=== PATIENT | female | born 1955 | race Caucasian/White ===

== ENCOUNTER → 2016-11-01 | Outpatient (CLI) | payer BC ==
[~2016-11-01] MED LIST: HYDR-5688 PO
--- NOTE | 2016-11-02 08:01 | MAMMOGRAPHY REPORT ---
BILATERAL DIGITAL SCREENING MAMMOGRAM TOMOSYNTHESIS WITH CAD: 11/01/2016 CLINICAL HISTORY: Routine screening examination. TECHNIQUE: Bilateral breast tomosynthesis in addition to standard 2D mammography was performed. Curr ent study was also evaluated with a Computer Aided Detection (CAD) system. COMPARISON: Comparison is made to exams dated: 10/27/2015 mammogram, 10/12/2013 mammogram - [facility], 09/12/2013 mammogram - [facility], 10/14/2014 ultrasound, 4 mammogram - [facility], and 09/08/2013 mammogram - [facility]. BREAST COMPOSITION: The tissue of both breasts is heterogeneously dense, which may obscure small ma sses. FINDINGS: There is evidence of prior reduction mammoplasty. There is a stable metallic biopsy marke r in the lower outer left breast, and stable asymmetries within the left breast. Faint punctate norah rocalcifications are also stable in the left breast. There is a focal area of architectural distortion in the 12:00 middle to posterior right breast, edwige t does not align with any of the visible mammoplasty scars, for which additional targeted ultrasound and possible additional mammographic views are recommended. There are stable benign-appearing microcalcifications within the right breast. No other suspicious mass, architectural distortion or suspicious microcalcifications are seen. IMPRESSION: ACR BI-RADS CATEGORY 0: INCOMPLETE EVALUATION: NEED ADDITIONAL IMAGING EVALUATION The focal architectural distortion in the 12:00 right breast needs additional evaluation. The patient will be called to schedule an appointment. Approximately 10% of breast cancers are not detected with mammography. A negative mammographic repor t should not delay biopsy if a clinically suggestive mass is present. Mimi James M.D. ay/:11/01/2016 22:23:37 Catering Cook: Shannon MIRAMONTES)(Sera), [facility] letter sent: Addl Imaging 0 BI-RADS Code: ACR BI-RADS Category 0: Incomplete Evaluation: Need Additional Imaging Evaluation
== END | disposition home or self-care (01) ==
LOC: C.MAMM 12:08
PROVIDERS: ATTEND Specialist
DX: Z12.31 Encounter for screening mammogram for malignant neoplasm of breast (principal); N64.89 Other specified disorders of breast

== ENCOUNTER → 2016-11-10 | Outpatient (CLI) | payer BC ==
--- NOTE | 2016-11-10 14:27 | MAMMOGRAPHY REPORT ---
UNILATERAL RIGHT DIGITAL DIAGNOSTIC MAMMOGRAM TOMOSYNTHESIS AND TARGETED RIGHT ULTRASOUND: 11/10/2016 CLINICAL HISTORY: Callback from screening mammogram for right breast architectural distortion. TECHNIQUE: Breast tomosynthesis in addition to standard 2D mammography was performed. Spot aly nba tomosynthesis right CC and MLO views including c views were obtained. COMPARISON: Comparison is made to exams dated: 11/01/2016 mammogram, 10/27/2015 mammogram, 04/21/2015 m ammogram, 10/14/2014 mammogram, and 04/12/2014 mammogram - [facility]. BREAST COMPOSITION: The tissue of the right breast is heterogeneously dense, which may obscure smal l masses. FINDINGS: Spot compression views of the right breast demonstrate persistent architectural distortio n within the right 12:00 breast, best seen on the cc view. again noted is evidence of prior reductio n mammoplasty. When compared to prior exams, the distortion has likely been present dating back to the August 2013 exam, although is much more conspicuous on the current tomosynthesis images. Targeted ultrasound was performed of the right 12:00 breast in the region of the mammographic distor tion. No suspicious masses or other suspicious sonographic abnormalities are evident. While the distortion could represent postsurgical distortion from prior reduction mammoplasty, radia l scar and/or malignancy is not entirely excluded. Alternatively, the patient has a family history of breast cancer with her mother diagnosed in her 50s. Therefore, recommend further evaluation with bilateral breast MRI. IMPRESSION: ACR BI-RADS CATEGORY 0: INCOMPLETE EVALUATION: NEED ADDITIONAL IMAGING EVALUATION, TAR GETED ULTRASOUND ACR BI-RADS CATEGORY 0: INCOMPLETE EVALUATION: NEED ADDITIONAL IMAGING EVALUATION Persistent architectural distortion seen within the right 12:00 breast mammographically, without a s onographic correlate evident. While the distortion could represent postsurgical changes from prior r eduction mammoplasty, other etiologies such as radial scar or malignancy are not entirely excluded. Recommend bilateral breast MRI for further evaluation, especially given the family history of breas t cancer. The patient has been verbally notified of the results. Approximately 10% of breast cancers are not detected with mammography. A negative mammographic repor t should not delay biopsy if a clinically suggestive mass is present. Heather Gillis M.D. ah/:11/10/2016 09:52:05 Director Of Compliance: Christiane CONNOLLY(R)(M), [facility] letter sent: Addl Imaging 0 BI-RADS Code: ACR BI-RADS Category 0: Incomplete Evaluation: Need Additional Imaging Evaluation Ul trasound BI-RADS: ACR BI-RADS Category 0: Incomplete Evaluation: Need Additional Imaging Evaluation
--- NOTE | 2016-11-11 09:52 | CODING QUERY NO DIAGNOSIS ---
TREATMENT RENDERED WITHOUT A DIAGNOSIS Dr. Martinez, To promote full compliance with coding requirements relating to patient care, physician participation is requested in all cases of ply splicer uncertainty. Please assist us with providing a diagnosis/symptom for the test(s) below: A diagnosis/symptom was not documented on your Order. A valid diagnosis/symptom is required to bill all insurances. Please remember that we are unable to code a diagnosis of rule out, probable, possible, questionable, or suspected. Tests that require a diagnosis: * DIAG RT CALL BACK W/O CAD DIAGNOSIS: * ULTRASOUND BREAST LIMITED DIAGNOSIS: DATE OF SERVICE: 11/10/16 Provider Signature: Date: Thank you [facility] Information Management Once completed, please kindly fax back to [phone] For questions please call [phone]
== END | disposition home or self-care (01) ==
LOC: C.MAMM 09:17
PROVIDERS: ATTEND Specialist
DX: R92.2 Inconclusive mammogram (principal); N64.89 Other specified disorders of breast

== ENCOUNTER → 2016-11-23 | Outpatient (CLI) | payer BC ==
[~2016-11-23] MED LIST changes: +GADAVIST IV PRN
--- NOTE | 2016-11-25 13:35 | MAMMOGRAPHY REPORT ---
BREAST MRI OF BOTH BREASTS : 11/23/2016 CLINICAL HISTORY: 61-year-old woman with a history of prior reduction mammoplasty and benign left br east ultrasound guided core biopsy. Family history of breast cancer = mother. She was called back from screening mammography for architectural distortion in the 12:00 right breast. Diagnostic mammo grams demonstrate persistence of the distortion but a definite sonographic correlate was not seen. Patient presents for further evaluation. COMPARISON: Comparison is made to exams dated: 11/10/2016 mammogram, 11/01/2016 mammogram, 10/27/2015 m ammogram, 04/21/2015 mammogram, 10/14/2014 mammogram, and 10/14/2014 ultrasound - [facility]. TECHNIQUE: Using a 1.5 Jaimie magnet and dedicated breast coil, multisequence axial images were obtai petros through the breasts. After uneventful IV administration of 8 mL of Gadavist, dynamic multiphase contrast-enhanced axial images, and sagittal postcontrast were obtained. Temporal subtraction axia l images and 3-D MIP images are provided. Everything was then reviewed on a 3-D workstation, [employer]. FINDINGS: Right breast: There is evidence of prior reduction mammoplasty. There is moderate background parenc hymal enhancement. Focal architectural distortion is appreciated in the 12:00 superior right breast , approximately 6 cm distal to the nipple. There is associated central masslike enhancement with ind istinct borders that demonstrates mixed persistent and plateau kinetics, measuring 10.6 x 6.4 x 5.7 mm (axial images 4852). In retrospect, comparing to the MRI from 2013, this subtle distortion and associated enhancement is increasingly prominent although it is unclear if this may be in part posit ional. Nevertheless, this lesion is indeterminate and definitive characterization with tissue sampl ing is recommended. Would prefer MRI guidance as this lesion was inconspicuous on ultrasound. No s uspicious non-mass enhancement or suspicious kinetics are seen in the right breast. No focal skin t hickening or nipple retraction is seen. No suspicious right axillary lymphadenopathy. Left breast: There is evidence of prior reduction mammoplasty and moderate background parenchymal en hancement of the left breast. There is a conspicuous small round focus of enhancement measuring 4 m m in the upper inner quadrant versus 12:00 axis of the left breast (axial image 38/108) this does no t appear significantly changed in size compared to the 2014 MRI but has central washout kinetics. T his is indeterminate and second look ultrasound with possible ultrasound-guided core biopsy is recom mended. No other suspicious enhancing mass, non-mass enhancement, architectural distortion or suspi cious kinetics are identified in the left breast. There is no focal skin thickening or nipple retra ction. Susceptibility artifact is seen in the lower outer middle one third of the left breast, repr esenting the biopsy marker clip from prior benign biopsy. No suspicious left axillary lymphadenopat hy. IMPRESSION: ACR BI-RADS CATEGORY 4: SUSPICIOUS 1. MRI guided biopsy is recommended for focal architectural distortion in the 12:00 right breast wi th central masslike enhancement measuring approximately 1 cm. 2. At the time of the MRI guided biopsy, second look ultrasound with possible ultrasound-guided cor e needle biopsy is recommended for a small round 4 mm focus of enhancement in the superior left aileen st, with associated suspicious kinetics. 3. No suspicious axillary lymphadenopathy bilaterally. The patient will be called to schedule an appointment. Mimi James M.D. 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
== END | disposition home or self-care (01) ==
LOC: C.MRI 07:38
PROVIDERS: ATTEND Specialist
DX: R92.8 Other abnormal and inconclusive findings on diagnostic imaging of breast (principal)

== ENCOUNTER → 2016-12-22 | Outpatient (CLI) | payer BC ==
[~2016-12-22] MED LIST changes: +LIDO/EPINEPHRINE/SOD BICARB 20 ML VIAL INFIL ONE; +XYLOCAINE 1%/SOD BICARB 20 ML VIAL INFIL ONE
--- NOTE | 2016-12-22 10:23 | Discharge Instructions ---
Discharge Instructions Procedure Procedure Date: Dec 22, 2016. Reason for visit: Right Architectural Distortion. Discharge Discharge Date: Dec 22, 2016. Discharge Diagnosis: status post breast biopsy Instructions Activity Recommendations: Additional Limitations (see below) Return to School/Work: no limitations Recommended Home Diet: No Limitations Provider Instructions: ACTIVITY RECOMMENDATIONS: * No lifting, pushing, pulling or exercising the affected side for three days. RETURN TO SCHOOL/WORK: * You may return to work/school after the procedure, but do not perform any strenuous activities for 24 to 48 hours. MEDICATIONS: * Tylenol (two 325 mg) every four to six hours if needed for mild pain (if not allergic to Tylenol). DIET: * Resume previous diet. SPECIAL CARE INSTRUCTIONS: * Keep biopsy site dry for 24 hours. May shower after 24 hours, but do not soak (bathe) incision. * May remove Tegaderm (plastic patch) tomorrow AFTER showering. * Leave the steri-strips on for one week. Allow the steri-strips to fall off by themselves. If not off after one week, you may remove them. You may place a Bandaid crosswise over the strips, if desired. * Apply ice 10 minutes on and 10 minutes off as needed. * Wear a bra at bedtime to sleep more comfortably for 2-3 days. * Your referring physician should have the results after approximately 5 to 7 business days. * Call for unusual bleeding, fever, drainage, etc or if you have any questions call during normal business hours or after hours call Dr Gillis, [phone]. FOLLOW UP VISIT: Follow-up with Referring Physician as scheduled. Allergies Coded Allergies: No Known Drug Allergy (Verified Allergy, Unknown, [facility], 10/12/13) Rupal Watsony Recommendations: Call your doctor if: * Temperature above 101 degrees * Pain not relieved by pain medicine ordered * There is increased drainage or redness from any incision * You have any unanswered questions or concerns. Your Doctors Instructions noted above were prepared by provider Heather Gillis. Patient Signature Section: Patient Instructions Signature Page Jerri Zapata Patient (or Guardian) Signature/Date: I have read and understand the instructions given to me by my caregivers. Caregiver/RN/Doctor Signature/Date: The above-named patient and/or guardian has received patient instructions on this date. + Original Patient Signature Page (only) stays with chart. Please make copy for patient.
--- NOTE | 2016-12-22 14:35 | MAMMOGRAPHY REPORT ---
THIS REPORT HAS BEEN AMENDED. MRI BIOPSY RIGHT BREAST: 12/22/2016 CLINICAL HISTORY: Abnormal enhancement in the right 12:00 breast, which corresponds with mammographi c architectural distortion. COMPARISON: Comparison is made to exams dated: 11/10/2016 mammogram, 11/01/2016 mammogram, 10/27/2015 m ammogram, 04/21/2015 mammogram, and 11/23/2016 breast MRI - [facility]. Technique: Written informed consent was obtained from the patient after discussion of the procedure as well as risks of MRI guided core needle biopsy. A preprocedural timeout was performed prior to s tarting the procedure. The patient was placed prone on a 1.5 Jaimie MR scanner. The lateral aspect of the right breast was cleansed with ChloraPrep. The right breast was positioned in a dedicated breast coil and MRI guidan ce grid device. After localizing sequences were obtained, pre-and postcontrast axial sequences were performed which confirm the persistence of the enhancing lesion in the right 12:00 breast. 8 mL of Gadavist IV cont rast was administered. Using the images, targeting was performed using the [employer] software. The skin was prepped with Betadine through the grid and after local anesthesia was achieved, an intr oducer sheath and localizing obturator were placed into the site using a lateral approach. The loca tion of the obturator sheath was confirmed with additional images. Subsequently, multiple samples were obtained from the site using a [employer] 9-gauge vacuum-assisted cor e biopsy device. Through the introducer sheath, a marker clip was placed. Postprocedural images de monstrate postbiopsy changes in the expected location of the enhancing lesion. Direct pressure was held at the biopsy site until hemostasis was achieved. The patient tolerated the procedure without immediate complication. Mammography was obtained at the breast center after completion of the biopsy to confirm marker clip placement. Please see the sepa rate dictation of the exam for further details. The specimens were sent to pathology for analysis. Wound care instructions were given to the patient. IMPRESSION: MRI BIOPSY MRI guided core needle biopsy of enhancing lesion in the right 12:00 breast, with clip placement. T he patient will receive pathology results from her referring provider. Heather Gillis M.D. 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 The pathology results from MRI guided right breast biopsy were reviewed on 12/29/2016. The pathology shows a radial scar/complex sclerosing lesion, which is concordant with the imaging findings. Recom mend surgical excision for further evaluation. Additionally, recommend follow-up breast MRI in 6 mo nths to reevaluate the enhancing focus in the left breast which is probably benign.
--- NOTE | 2016-12-22 14:35 | MAMMOGRAPHY REPORT ---
UNILATERAL RIGHT DIGITAL DIAGNOSTIC MAMMOGRAM: 12/22/2016 CLINICAL HISTORY: Status post right breast MRI guided biopsy. TECHNIQUE: Postprocedural right CC and ML views were obtained. COMPARISON: Comparison is made to exams dated: 11/10/2016 ultrasound, 11/10/2016 mammogram, 11/01/2016 mammogram, and 10/27/2015 mammogram - [facility]. BREAST COMPOSITION: The tissue of the right breast is heterogeneously dense, which may obscure smal l masses. FINDINGS: A new biopsy marker clip is seen in the expected location of the biopsied enhancing lesio n in the right 12:00 breast. No significant postbiopsy hematoma is seen. IMPRESSION: POST PROCEDURE IMAGING FOR MARKER PLACEMENT New biopsy marker clip status post MRI guided biopsy of the right breast. Pathology results are pen ding. Approximately 10% of breast cancers are not detected with mammography. A negative mammographic repor t should not delay biopsy if a clinically suggestive mass is present. Heather Gillis M.D. ah/:12/22/2016 11:18:48 Quality Management Coordinator: João CONNOLLY(Dc)(M), [facility] BI-RADS Code: Post Procedure Imaging For Marker Placement
--- NOTE | 2016-12-22 14:35 | MAMMOGRAPHY REPORT ---
ULTRASOUND OF LEFT BREAST: 12/22/2016 CLINICAL HISTORY: 4 mm focus of enhancement seen within the left upper inner quadrant/12:00 breast o n recent breast MRI, for which second look ultrasound was recommended. COMPARISON: Comparison is made to exams dated: 11/23/2016 breast MRI, 11/10/2016 ultrasound, and mammogram - [facility]. Breast MRI dated 05/16/2014. TECHNIQUE: Real-time targeted ultrasound of the left breast was performed. FINDINGS: Real-time, high-resolution targeted ultrasound was performed of the left upper inner quadrant/12:00 breast in the region of the enhancing focus seen on breast MRI. Multiple small round/oval anechoic circumscribed masses are seen in this region, consistent with benign cysts. No suspicious solid mas s is evident. No clear sonographic correlate for the enhancing focus is seen. On review of prior M RI, the focus is not significantly changed compared to the 05/16/2014 exam. IMPRESSION: ACR-BI-RADS CATEGORY 3: PROBABLY BENIGN - FOLLOW-UP RECOMMENDED No clear correlate is seen on ultrasound for the 4 mm enhancing focus within the left breast on rece nt breast MRI. The focus is probably benign given the stability since 05/16/2014. Pending benign pa thology of the right breast biopsy, recommend follow-up bilateral breast MRI in 6 months to confirm stability. The patient was verbally notified of the results. Heather Gillis M.D. /:12/22/2016 11:22:22 Attending Technologist: João CONNOLLY(Dc)(M), [facility] Hot Mill Roller: Heather Gillis MD, [facility] BI-RADS Code: ACR-BI-RADS Category 3: Probably Benign
== END | disposition home or self-care (01) ==
LOC: C.MRI 08:46
PROVIDERS: ATTEND Specialist
DX: N64.9 Disorder of breast, unspecified (principal)

== ENCOUNTER → 2017-01-21 | Outpatient (CLI) | payer BC ==
[~2017-01-21] MED LIST changes: -GADAVIST IV PRN; -LIDO/EPINEPHRINE/SOD BICARB 20 ML VIAL INFIL ONE; -XYLOCAINE 1%/SOD BICARB 20 ML VIAL INFIL ONE
--- NOTE | 2017-01-21 08:41 | DIAGNOSTIC IMAGING REPORT ---
CHEST 2 VIEWS ROUTINE HISTORY: ABNORMAL LUNG SOUNDS,LAB FIRST, RAD SECOND AND CPL THIRD COMPARISON: Chest 10/08/2013. FINDINGS: The lungs are clear. Cardiac silhouette is normal in size. No pleural effusions. No pneumothorax. IMPRESSION: No acute process. Electronically signed by: Stefan Kan M.D. 01/21/2017 8:39 AM Dictated Date/Time: 01/21/2017 8:38 AM
[2017-01-21 09:33] LABS: BASO % 0.5 %; BASO ABS # 0.04 K/uL (0-0.2); COMPLETE YES; EOS % 0.9 %; HEMATOCRIT 43.9 % (37-47); IG% 0.3 %; LYMPH % 35.2 %; LYMPH ABS # 2.76 K/uL (1.2-3.4); MEAN CELL VOLUME 88.3 fL (80-100); MEAN CORPUSCULAR HEMOGLOBIN 29.8 pg (25-34); MEAN CORPUSCULAR HGB CONC 33.7 g/dl (32-36); MEAN PLATELET VOLUME 9.6 fL (7.4-10.4); MONO % 5.9 %; NEUT % 57.2 %; PLATELET COUNT 255 K/uL (130-400); RED BLOOD COUNT 4.97 M/uL (4.2-5.4); WHITE BLOOD COUNT 7.85 K/uL (4.8-10.8)
[2017-01-21 09:50] LABS: ALT/SGPT 35 U/L (12-78); AST/SGOT 16 U/L (15-37); BLOOD UREA NITROGEN 14 mg/dl (7-18); BUN/CREATININE RATIO 15.7 (10-20); CARBON DIOXIDE 30 mmol/L (21-32); CHLORIDE 107 mmol/L (98-107); CHOLESTEROL 189 mg/dl (0-200); CREATININE 0.88 mg/dl (0.60-1.20); GLUCOSE,FASTING 99 mg/dl (70-99); POTASSIUM 4.2 mmol/L (3.5-5.1); SODIUM 142 mmol/L (136-145)
[2017-01-21 09:52] LABS: ALB/GLOB RATIO 0.8 (0.9-2); ALKALINE PHOSPHATASE 88 U/L (45-117); HDL CHOLESTEROL 38 mg/dl; LDL CHOLESTEROL CALCULATED 122 mg/dl; TRIGLYCERIDES 146 mg/dl (0-150); VERY LOW DENSITY LIPOPROT CALC 29 mg/dl
== END | disposition home or self-care (01) ==
LOC: C.LAB 08:01
PROVIDERS: ATTEND Surgery
DX: Z00.00 Encounter for general adult medical examination without abnormal findings (principal); N63 Unspecified lump in breast

== ENCOUNTER → 2017-02-04 | Day surgery (SDC) | payer BC ==
[2017-01-17 12:24] VITALS: Ht 157.5 cm; Wt 79.5 kg
[~2017-02-04] VITALS: Ht 157.5 cm; Wt 79.5 kg
[~2017-02-04] MED LIST changes: +ATROPINE SULFATE 0.1 MG/ML 5ML SYR IV PRN; +CEFAZOLIN 2000 MG/60 ML D5W IV SCH; +DEXAMETHASONE SOD INJ 4 MG/ML VIAL IV PRN; +DEXAMETHASONE SOD INJ 4 MG/ML VIAL ONE; +EpHEDrine SULFATE INJ 50 MG/ML AMP IV PRN; +FENTANYL CITRATE INJ 50 MCG/1 ML 2 ML VIAL ONE; +HYDROCODONE/ACETAMOPHEN 5/325MG TAB PO PRN; +KETOROLAC TROMETHAMINE 30 MG/ML VIAL IV. PRN; +LABETALOL HCL IV 5 MG/ML 20ML IV PRN; +LACTATED RINGER'S 1000ML 1,000 ML IV SCH; +LIDOCAINE HCL 2% 2 ML VIAL (20MG/ML) ONE; +LIDOCAINE/EPINEPHRINE 1% INJ 50 ML VIAL ONE; +METOCLOPRAMIDE HCL INJ 5 MG/ML 2 ML VIAL IV PRN; +MIDAZOLAM HCL 1 MG/ML 2ML VIAL ONE; +MoRPHine SULFATE 10 MG/ML CARP/VIAL IV PRN; +ONDANSETRON INJ 2 MG/ML 2 ML VIAL IV PRN; +ONDANSETRON INJ 2 MG/ML 2 ML VIAL ONE; +PHENYLEPHRINE 100MCG/ML 5ML SYR IV PRN; +PROPOFOL IV EMULSION 10 MG/ML 20 ML VIAL IV ONE; +SODIUM CHLORIDE 0.9% 1000ML 1,000 ML IV SCH
--- NOTE | 2017-02-04 09:14 | History & Physical Bridge Note ---
H&P Re-Evaluation Bridge Note: I have examined the patient, reviewed the History & Physical and in the interval since the performance of the History & Physical I have noted the following changes of clinical significance: No changes noted
--- NOTE | 2017-02-04 10:31 | [facility] Operative Report ---
Operative Report Operative Date Feb 04, 2017. Pre-Operative Diagnosis Abnormal mammogram--right breast Post-Operative Diagnosis same Procedure(s) Performed right breast lumpectomy with needle LOC Surgeon Dr Conway Endoscopy Tech Surgeon(s) Tiara Warren PA-C Estimated Blood Loss 15 ml Findings normal appearing breast tissue. Specimens A. right breast needle-- loc biopsy sent fresh to breast center short stitch-superior, long stitch lateral tissue out out at 1008 Anesthesia gen with LMA Complication(s) None Disposition Recovery Room / PACU I attest to the content of the Intraoperative Record and any orders documented therein. Any exceptions are noted below.
--- NOTE | 2017-02-04 10:38 | Discharge Instructions-SurgCtr ---
Discharge Instructions Date of Service Feb 04, 2017. Visit Reason for Visit: Right Breast Mass Discharge Discharge Diagnosis / Problem: Right Breast Mass Discharge Goals Goal(s): Decrease discomfort, Improve function Activity Recommendations Activity Limitations: as noted below Lifting Limitations: no more than 10 pounds Exercise/Sports Limitations: until after follow-up appointment May Resume Sexual Activity: after follow-up appointment Shower/Bathe: tomorrow Driving or Machine Use: resume 1 day after discharge Anesthesia . Post Anesthesia Instructions: If you have had General Anesthesia or IV Sedation: * Do not drive today. * Resume driving when surgeon permits. * Do not make important decisions or sign legal documents today. * Call surgeon for: 1. Temperature elevations greater than 101 degrees F. 2. Uncontrollable pain. 3. Excessive bleeding. 4. Persistent nausea and vomiting. 5. Medication intolerance (nausea, vomiting or rash). * For nausea and vomiting use only clear liquids such as: tea, soda, bouillon until nausea subsides, then gradually increase diet as tolerated. * If you have any concerns or questions, call your surgeon's office. If physician is unavailable and it is an emergency, call 911 or go to the nearest emergency room. . Instructions / Follow-Up Instructions / Follow-Up Please follow-up with Dr. Conway in the office in 1-2 weeks. Please call the office at [phone] to make a follow-up appointment if you do not have one already. If you have any questions or concerns, please call the office at [phone]. Diet Recommendations Home Diet: no limitations, resume previous diet Procedures Procedures Performed: Right Breast Lumpectomy With Needle Localization Pending Studies Studies pending at discharge: yes List of pending studies: Pathology report. Medical Emergencies . Who to Call and When: Medical Emergencies: If at any time you feel your situation is an emergency, please call 911 immediately. . Non-Emergent Contact Non-Emergency issues call your: Primary Care Provider, Surgeon Call Non-Emergent contact if: temperature is above 101.5, your pain is not controlled, wound has increased drainage, wound has increased redness . . "Provider Documentation" section prepared by Isabella Braxton. . [place] Drug Monitoring Program Search Results: patient reviewed within database, no issues identified
[2017-02-04] MEDS: FENTANYL CITRATE INJ 50 MCG/1 ML 2 ML VIAL IV PRN ×2 (10:52→11:04)
--- NOTE | 2017-02-04 10:52 | OPERATIVE REPORT ---
DATE OF OPERATION: 02/04/2017 PREOPERATIVE DIAGNOSIS: Abnormality on mammogram of the right breast/radial scar complex. POSTOPERATIVE DIAGNOSIS: Same. PROCEDURE: Right breast lumpectomy with needle localization. SURGEON: Dr. Brett Conway. PRE PRESS PROOFER: Isabella Braxton PA-C. ESTIMATED BLOOD LOSS: Approximately 15 mL. COMPLICATIONS: No immediate. ANESTHESIA: General with laryngeal mask airway. DESCRIPTION OF PROCEDURE: Prior to coming to the operating suite, the patient had been taken to the breast center, where mammography with needle localization was performed. The patient was then brought to the operating suite and placed in supine position. After successful placement of laryngeal mask airway, the entire right breast including the guidewire was sterilely prepped and draped in the usual fashion. We did cut the wire to make introduction into the wound itself more easy to accomplish. I began by making a curvilinear incision just inferior to the entrance site of the guidewire. We used electrocautery to carry down through the soft tissue and start making skin flaps. Again, the wire had been cut previously and we were able to introduce it into the wound itself. We used traction and countertraction and electrocautery to continue to come around the breast tissue and 360 degrees around the localizing wire. We continued to follow this inferiorly as well as posteriorly. The course of the wire carried it down to the retro nipple areolar complex area. We carried it whole way down to the chest wall, though we did not take fascia. Once we got to the tip, where we could feel the tip of the guidewire, I came around again normal breast tissue posterior and inferior and then took the specimen out in 1 entire piece. We did orient it such that 2 long sutures were lateral and 1 short suture was superior on the specimen. We left the wire in place. We did send it to the [place], where they x-rayed it and did verify that we got the specimen. We then thoroughly irrigated the wound and controlled any small bleeding points using electrocautery. Two grams of Vashti was placed on all the raw surfaces to help prevent hematoma and seroma formation. I then closed the wound in multiple layers using 0 Vicryl for deep layers, 2-0 Vicryl for mid layers and 4-0 Monocryl for skin. Benzoin, Steri-Strips and sterile dressing were applied. The patient was awakened and extubated, and transferred to recovery in stable condition. I attest to the content of the Intraoperative Record and any orders documented therein. Any exception s are noted below.
[2017-02-04 11:39] VITALS: BP 148/75; PULSE 62; TEMP 36.2; O2SAT 96
--- NOTE | 2017-02-04 12:13 | Anesthesia Progress Nt - [facility] ---
Anesthesia Post Op Note Date & Time Feb 04, 2017 at 12:13 Vital Signs Pain Intensity: 4.0 Vital Signs Past 12 Hours Date Time Temp Pulse Resp B/P (MAP) Pulse Ox O2 Delivery O2 Flow Rate FiO2 02/04/17 11:39 36.2 62 148/75 (99) 96 Room Air 02/04/17 11:27 70 14 02/04/17 11:27 69 14 147/94 95 02/04/17 11:26 36.2 63 12 147/94 94 Room Air 02/04/17 11:22 65 19 152/82 98 02/04/17 11:22 66 19 02/04/17 11:17 66 10 02/04/17 11:17 66 10 136/80 98 02/04/17 11:12 72 12 143/93 95 02/04/17 11:12 71 12 02/04/17 11:09 145/84 02/04/17 11:07 65 15 02/04/17 11:07 67 15 98 02/04/17 11:02 64 13 152/74 97 02/04/17 11:02 64 13 02/04/17 10:57 74 14 140/91 95 02/04/17 10:57 75 14 02/04/17 10:52 67 16 161/71 99 02/04/17 10:52 69 16 02/04/17 10:48 157/ 02/04/17 10:47 74 16 02/04/17 10:47 76 16 99 02/04/17 10:42 74 17 156/87 99 02/04/17 10:42 75 17 02/04/17 10:37 69 15 158/84 99 02/04/17 10:37 68 15 02/04/17 10:34 166/97 02/04/17 10:32 36.2 74 16 166/97 98 Diffusion Mask 6 02/04/17 08:03 36.8 72 20 167/83 (111) 96 Room Air Notes Mental Status: alert / awake / arousable, participated in evaluation Pt Amnestic to Procedure: Yes Nausea / Vomiting: adequately controlled Pain: adequately controlled Airway Patency, RR, SpO2: stable & adequate BP & HR: stable & adequate Hydration State: stable & adequate Anesthetic Complications: no major complications apparent
--- NOTE | 2017-02-04 13:55 | MAMMOGRAPHY REPORT ---
SPECIMEN RIGHT BREAST: 02/04/2017 CLINICAL HISTORY: Status post right breast surgical excision. COMPARISON: Comparison is made to exams dated: 12/22/2016 ultrasound, 12/22/2016 mammogram, 12/22/2016 MRI biopsy, 11/23/2016 breast MRI, and 11/10/2016 mammogram - [facility]. Findings: A radiograph was performed of the right breast surgical specimen. The localized architectu ral distortion is present centrally within the specimen. The biopsy marker clip is also noted within the specimen. Results were discussed with Dr. Conway over the telephone. IMPRESSION: SPECIMEN The imaged specimen contains the preoperatively localized abnormality. Heather Gillis M.D. /:02/04/2017 10:24:50 Tourist Cabin Keeper: Luana CONNOLLY(Dc)(M), [facility]
--- NOTE | 2017-02-04 13:55 | MAMMOGRAPHY REPORT ---
NEEDLE LOCALIZATION RIGHT BREAST: 02/04/2017 CLINICAL HISTORY: Recent MRI guided biopsy of right breast architectural distortion which yielded a r adial scar. The patient presents for preoperative needle localization. PROCEDURE DESCRIPTION: With imaging guidance, aseptic technique, and 1% lidocaine as the local anesth etic, the area of concern was localized with a 7.5 cm needle. The path of approach was craniocaudal. The biopsy marker clip from the original MRI guided biopsy is noted to be laterally migrated from t he biopsy site. The architectural distortion and a small associated postbiopsy hematoma were therefo re localized instead of the biopsy marker clip, which is noted to be migrated approximately 1.9 cm la teral to the architectural distortion. The localized architectural distortion and postbiopsy hematom a are located along the distal aspect of the wire, approximately 15 mm proximal to the tip of the wir e in the region of the hook. The needle was removed. The patient tolerated the procedure without com plication. COMPARISON: Comparison is made to exams dated: 12/22/2016 ultrasound, 12/22/2016 mammogram, 11/10/2016 ultrasound, 11/10/2016 mammogram, 11/01/2016 mammogram, and 10/27/2015 mammogram - [facility]. IMPRESSION: NEEDLE LOCALIZATION Mammographic guided needle localization of the mammographic architectural distortion and associated s mall postbiopsy hematoma. The biopsy marker clip was not localized as it was noted to be laterally m igrated from the biopsy site. Heather Gillis M.D. /:02/04/2017 08:30:27 Photo Finish Photographer: Luana CONNOLLY(R)(M), [facility]
== END | disposition home or self-care (01) ==
LOC: X.SURG 07:52
PROVIDERS: ATTEND Surgery
DX: N63 Unspecified lump in breast (principal); N62 Hypertrophy of breast; Z83.3 Family history of diabetes mellitus; Z80.3 Family history of malignant neoplasm of breast; Z82.49 Family history of ischemic heart disease and other diseases of the circulatory system

== ENCOUNTER → 2017-06-15 | Outpatient (CLI) | payer BC ==
--- NOTE | 2017-06-15 18:41 | DIAGNOSTIC IMAGING REPORT ---
RIGHT KNEE 3 VIEWS HISTORY: Right knee pain. COMPARISON: None. FINDINGS: There is no fracture or dislocation. Soft tissues are unremarkable. No radiopaque foreign bodies. No knee effusion. IMPRESSION: No fractures. Electronically signed by: Stefan Kan M.D. 06/15/2017 6:40 PM Dictated Date/Time: 06/15/2017 6:39 PM
--- NOTE | 2017-06-15 18:46 | DIAGNOSTIC IMAGING REPORT ---
RIGHT ANKLE 3 VIEWS, RIGHT FOOT 3 VIEWS HISTORY: M25.571 Pain in joint of right ankle or foot right COMPARISON: None. FINDINGS: No acute fracture or dislocation. Old, healed fifth metatarsal fracture. 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 Soft tissue and bony bunion within the foot. Mild osteoarthritis at the first MTP joint. The Lisfranc joint is well aligned. Mild soft tissue swelling within the ankle. No radiopaque foreign bodies. IMPRESSION: No acute fracture or dislocation within the right ankle or right foot. Electronically signed by: Stefan Kan M.D. 06/15/2017 6:44 PM Dictated Date/Time: 06/15/2017 6:40 PM
--- NOTE | 2017-06-15 18:46 | DIAGNOSTIC IMAGING REPORT ---
RIGHT ANKLE 3 VIEWS, RIGHT FOOT 3 VIEWS HISTORY: M25.571 Pain in joint of right ankle or foot right COMPARISON: None. FINDINGS: No acute fracture or dislocation. Old, healed fifth metatarsal fracture. 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 Soft tissue and bony bunion within the foot. Mild osteoarthritis at the first MTP joint. The Lisfranc joint is well aligned. Mild soft tissue swelling within the ankle. No radiopaque foreign bodies. IMPRESSION: No acute fracture or dislocation within the right ankle or right foot. Electronically signed by: Stefan aKn M.D. 06/15/2017 6:44 PM Dictated Date/Time: 06/15/2017 6:40 PM
== END | disposition home or self-care (01) ==
LOC: C.RAD 18:10
PROVIDERS: ATTEND Physician Assistant
DX: M25.571 Pain in right ankle and joints of right foot (principal); M25.569 Pain in unspecified knee

== ENCOUNTER → 2017-08-08 | Outpatient (CLI) | payer BC ==
[2017-08-08 11:51] LABS: BLOOD UREA NITROGEN 15 mg/dl (7-18); BUN/CREATININE RATIO 14.9 (10-20); CREATININE 1.01 mg/dl (0.60-1.20)
== END | disposition home or self-care (01) ==
LOC: C.LABPBG 07:29
PROVIDERS: ATTEND Physician Assistant
DX: R92.8 Other abnormal and inconclusive findings on diagnostic imaging of breast (principal)

== ENCOUNTER → 2017-08-12 | Outpatient (CLI) | payer BC ==
[~2017-08-12] MED LIST changes: -ATROPINE SULFATE 0.1 MG/ML 5ML SYR IV PRN; -CEFAZOLIN 2000 MG/60 ML D5W IV SCH; -DEXAMETHASONE SOD INJ 4 MG/ML VIAL IV PRN; -DEXAMETHASONE SOD INJ 4 MG/ML VIAL ONE; -EpHEDrine SULFATE INJ 50 MG/ML AMP IV PRN; -FENTANYL CITRATE INJ 50 MCG/1 ML 2 ML VIAL ONE; +GADAVIST IV PRN; -HYDR-5688 PO; -HYDROCODONE/ACETAMOPHEN 5/325MG TAB PO PRN; -KETOROLAC TROMETHAMINE 30 MG/ML VIAL IV. PRN; -LABETALOL HCL IV 5 MG/ML 20ML IV PRN; -LACTATED RINGER'S 1000ML 1,000 ML IV SCH; -LIDOCAINE HCL 2% 2 ML VIAL (20MG/ML) ONE; -LIDOCAINE/EPINEPHRINE 1% INJ 50 ML VIAL ONE; -METOCLOPRAMIDE HCL INJ 5 MG/ML 2 ML VIAL IV PRN; -MIDAZOLAM HCL 1 MG/ML 2ML VIAL ONE; -MoRPHine SULFATE 10 MG/ML CARP/VIAL IV PRN; -ONDANSETRON INJ 2 MG/ML 2 ML VIAL IV PRN; -ONDANSETRON INJ 2 MG/ML 2 ML VIAL ONE; -PHENYLEPHRINE 100MCG/ML 5ML SYR IV PRN; -PROPOFOL IV EMULSION 10 MG/ML 20 ML VIAL IV ONE; -SODIUM CHLORIDE 0.9% 1000ML 1,000 ML IV SCH
--- NOTE | 2017-08-15 07:59 | MAMMOGRAPHY REPORT ---
BREAST MRI OF BOTH BREASTS : 08/12/2017 CLINICAL HISTORY: History of right breast surgical excision for a radial scar January 2017. Short inter loco follow-up for enhancing focus in the left breast seen on prior breast MRI. COMPARISON: Comparison is made to exams dated: 12/22/2016 mammogram, 11/23/2016 breast MRI, 11/10/2016 mammogram, 11/01/2016 mammogram, and 10/27/2015 mammogram - [facility]. Breast MRI d ated 05/16/2014. Technique: The patient was placed prone in a dedicated breast imaging coil. Precontrast axial T1-odette ghted, axial T2-weighted fat saturation, and axial T1-weighted fat saturation images were obtained. After the administration of 8 mL of Gadavist IV contrast, sequential T1-weighted fat saturation image s were obtained. Subtraction images were obtained of the dynamic contrast enhanced sequences, and 3- D reformations were performed. The [employer] software was used for kinetic analysis. Findings: There is moderate background parenchymal enhancement involving bilateral breasts. Again noted are po stsurgical changes from bilateral reduction mammoplasty. Additionally, there are new post surgical c hanges in the right superior posterior breast at approximately 12:00 from prior surgical excision whi ch yielded radial scar including a T2 hyperintense, nonenhancing 2.7 x 0.9 cm mass at the surgical be d, consistent with a small postsurgical fluid collection (series 4 image 26). There are multiple sma ll enhancing foci seen scattered bilaterally, which likely represent normal background parenchymal en hancement given the multiplicity and bilaterality. The previously described small 4 mm enhancing foc us in the left upper inner quadrant is stable compared to prior breast MRI dated October 2016, and in r etrospect is not significantly changed compared to the April 2014 MRI. Additionally, this focus appears similar to other scattered bilateral enhancing foci. Given the long-term stability, the focu s is felt to be benign. There are no new suspicious enhancing masses or areas of abnormal non-mass e nhancement within either breast. Scattered circumscribed T2 hyperintense, nonenhancing masses are se en bilaterally, consistent with cysts. There is no evidence of axillary adenopathy. The chest wall structures are negative. Extramammary s oft tissues are unremarkable. IMPRESSION: ACR BI-RADS CATEGORY 2: BENIGN No MRI evidence of malignancy in either breast. Small 4 mm enhancing focus in the left upper inner q uadrant is stable compared to prior October 2016 and April 2014 exams, and is considered benign giv en long-term stability. Note that the patient is due for bilateral mammograms October 2017. Heather Gillis M.D. ah/:08/13/2017 15:54:00 Ict Business Analyst: director operations, [facility] letter sent: Normal 1/2 BI-RADS Code: ACR BI-RADS Category 2: Benign
== END | disposition home or self-care (01) ==
LOC: C.MRI 08:30
PROVIDERS: ATTEND Surgery
DX: N63.10 Unspecified lump in the right breast, unspecified quadrant (principal); N63.22 Unspecified lump in the left breast, upper inner quadrant

== ENCOUNTER → 2017-11-08 | Outpatient (CLI) | payer BC ==
--- NOTE | 2017-11-09 15:36 | MAMMOGRAPHY REPORT ---
BILATERAL DIGITAL SCREENING MAMMOGRAM TOMOSYNTHESIS WITH CAD: 11/08/2017 CLINICAL HISTORY: Routine screening. Patient has no complaints. TECHNIQUE: Breast tomosynthesis in addition to standard 2D mammography was performed. Current study was also evaluated with a Computer Aided Detection (CAD) system. COMPARISON: Comparison is made to exams dated: 08/12/2017 breast MRI, 02/04/2017 specimen, 02/04/2017 lo calization, 12/22/2016 mammogram, 11/01/2016 mammogram, and 10/27/2015 mammogram - [facility]. BREAST COMPOSITION: The tissue of both breasts is heterogeneously dense, which may obscure small mas ses. FINDINGS: There is evidence of prior bilateral reduction mammoplasty, and surgical excisional biopsy in the 12:00 right breast. There is a stable metallic biopsy marker clip in the lower outer left la ast, and stable asymmetry in the middle one third of the left breast along the posterior nipple line on the CC view. Faint punctate microcalcifications in the lateral left breast are stable comparing to prior exams. No suspicious mass, architectural distortion or cluster of microcalcifications is seen . IMPRESSION: ACR BI-RADS CATEGORY 1: NEGATIVE There is no mammographic evidence of malignancy. A 1 year screening mammogram is recommended. The pa tient will receive written notification of the results. Approximately 10% of breast cancers are not detected with mammography. A negative mammographic report should not delay biopsy if a clinically suggestive mass is present. Mimi James M.D. ay/:11/08/2017 16:52:04 Melangeur Operator: Daria CONNOLLY(Dc)(M), [facility] letter sent: Normal 1/2 BI-RADS Code: ACR BI-RADS Category 1: Negative
== END | disposition home or self-care (01) ==
LOC: C.MAMM 16:13
PROVIDERS: ATTEND Family Medicine
DX: Z12.31 Encounter for screening mammogram for malignant neoplasm of breast (principal)